=== PATIENT | female | born 1990 | race Two or more races ===

== ENCOUNTER 2019-03-14 18:01 | Emergency (ER) | payer MEDICAID ==
[~2019-03-14] VITALS: Ht 152.4 cm; Wt 67.1 kg
[2019-03-14 22:09] VITALS: BP 119/78
[2019-03-14] MEDS ORDERED: ALBUTEROL SULF 2.5 MG/0.5ML(0.5%) NEB SOLN NEB ONE (22:15)
[2019-03-14] MEDS ORDERED: IPRATROPIUM BROM 0.5 MG/2.5ML INH SOL NEB ONE (22:15)
== END 2019-03-15 01:39 | disposition home or self-care (01) ==
LOC: ER 18:01
DX: J40 Bronchitis, not specified as acute or chronic (principal)
CPT/HCPCS: 71046; 87070; 87804; 87880; 94640; 99284; J7611; J7644